=== PATIENT | male | born 1950 | race Two or more races ===

== ENCOUNTER 2024-05-08 21:57 | Inpatient (IN) | payer BC ==
[~2024-05-08] VITALS: Ht 172.7 cm; Wt 115.2 kg
[2024-05-09] MEDS ORDERED: ACETAMINOPHEN 325 MG TABLET PO PRN
[2024-05-09] MEDS ORDERED: MAGNESIUM HYDROXIDE 30 ML UDC PO PRN
[2024-05-09] MEDS ORDERED: ONDANSETRON HCL/PF 4 MG/2 ML VIAL IVP PRN
[2024-05-09] MEDS ORDERED: Z GUARD REMEDY 4 OZ OINT TP PRN
[2024-05-09] MEDS: NITROGLYCERIN PACKET 1 GM PACKET TOP SCH (01:05)
[2024-05-09] MEDS ORDERED: CLOPIDOGREL BISULFATE 75 MG TABLET PO ONE (01:30)
[2024-05-09] MEDS: METOPROLOL TARTRATE 25 MG TABLET PO ONE (02:56)
[2024-05-09] MEDS: MORPHINE SULFATE INJ 4 MG/ML DISP.SYRIN IV PRN (02:57)
[2024-05-09] MEDS ORDERED: CILOSTAZOL 100 MG TABLET ONE (03:08)
[2024-05-09] MEDS ORDERED: CLOPIDOGREL BISULFATE 75 MG TABLET ONE (03:12)
[2024-05-09] MEDS: CLOPIDOGREL BISULFATE 300 MG TABLET PO ONE (03:13)
[2024-05-09 04:00] VITALS: BP 138/60; TEMP 99; O2SAT 95
[2024-05-09 08:00] VITALS: BP 123/76; TEMP 98.6; O2SAT 96
[2024-05-09] MEDS ORDERED: VALA100026 PO (08:10)
[2024-05-09] MEDS ORDERED: ROSU5TAB PO (08:10)
[2024-05-09] MEDS ORDERED: OLME1TAB88 PO (08:10)
[2024-05-09] MEDS ORDERED: CLOP75TA15 PO (08:10)
[2024-05-09] MEDS ORDERED: PRED5DRO16 RIGHTEYE (08:10)
[2024-05-09] MEDS ORDERED: ASPI-1169 PO (08:10)
[2024-05-09] MEDS: PANTOPRAZOLE 40 MG TABLET.DR PO SCH (08:11)
[2024-05-09 08:19] LABS: CALCIUM, SERUM 9.3 mg/dL (8.5-10.1); CARBON DIOXIDE 30 mmol/L (21-32); CHLORIDE 103 mmol/L (98-107); CREATININE 1.1 mg/dL (0.6-1.3); GLUCOSE 109 mg/dL (74-106); MAGNESIUM 2.2 mg/dL (1.8-2.4); POTASSIUM 4.4 mmol/L (3.5-5.1); SODIUM SERUM 138 mmol/L (136-145); UREA NITROGEN, BLOOD 18 mg/dL (7-18)
[2024-05-09 08:24] LABS: BASOPHILS % (AUTO) 0.2 % (0.0-2.0); EOSINOPHILS # (AUTO) 0.1 K/uL (0.0-0.7); EOSINOPHILS % (AUTO) 0.9 % (0.0-6.0); HEMATOCRIT 37 % (39-51); HEMOGLOBIN 12.6 g/dL (13.5-17.5); LYMPHOCYTES # (AUTO) 0.7 K/uL (0.8-4.8); LYMPHOCYTES % (AUTO) 7.1 % (20.0-44.0); MEAN CORPUSCULAR HEMOGLOBIN 31 PG (26.0-33.0); MEAN CORPUSCULAR HGB CONC 34 g/dl (31.0-36.0); MEAN CORPUSCULAR VOLUME 89 fL (80-96); MONOCYTES # (AUTO) 0.6 K/uL (0.1-1.30); MONOCYTES % (AUTO) 5.8 % (2.0-12.0); NEUTROPHILS # (AUTO) 8.4 K/uL (1.8-8.9); PLATELET COUNT (AUTO) 219 K/uL (150-450); RED BLOOD CELL COUNT(AUTO) 4.12 MIL/uL (4.5-6.0); RED CELL DISTRIBUTION WIDTH 14.1 % (11.5-15.0); WHITE BLOOD COUNT (AUTO) 9.8 K/uL (4.3-11.0)
[2024-05-09 08:34] LABS: CHOLESTEROL 159 mg/dL (<200); HDL CHOLESTEROL 41 mg/dL (40-60); LDL 80 mg/dL (0-99); TRIGLYCERIDES 302 mg/dL (30-150)
[2024-05-09] MEDS: ASPIRIN 325 MG TABLET PO SCH (08:34)
[2024-05-09] MEDS: METOPROLOL TARTRATE 50 MG TABLET PO SCH (08:34)
[2024-05-09] MEDS ORDERED: CLOPIDOGREL BISULFATE 75 MG TABLET PO SCH (09:00)
[2024-05-09] MEDS: ENOXAPARIN SODIUM 120 MG/0.8 ML DISP.SYRIN SQ SCH (09:57)
[2024-05-09 12:00] VITALS: BP 125/68; TEMP 98.2; O2SAT 96
[2024-05-09 16:00] VITALS: BP 139/77; TEMP 98.4; O2SAT 97
[2024-05-09 20:00] VITALS: BP 128/66; TEMP 98; O2SAT 100
[2024-05-09] MEDS: ATORVASTATIN 40 MG TABLET PO SCH (22:02)
[2024-05-10] VITALS: BP 111/92; TEMP 98.9; O2SAT 100
[2024-05-10 04:00] VITALS: BP 125/90; TEMP 98.9; O2SAT 100
[2024-05-10 06:46] LABS: OCCULT BLOOD STOOL NEGATIVE (NEGATIVE)
[2024-05-10 06:57] LABS: APPEARANCE,URINE CLEAR (CLEAR); BILIRUBIN,URINE NEGATIVE (NEGATIVE); BLOOD, URINE TRACE-INTA Ery/uL (NEGATIVE); COLOR,URINE YELLOW (YELLOW); KETONES,URINE NEGATIVE (NEGATIVE); LEUKOCYTE ESTERASE ,URINE NEGATIVE (NEGATIVE); NITRITE, URINE NEGATIVE (NEGATIVE); PROTEIN,URINE NEGATIVE (NEGATIVE); UGLUCOSE NEGATIVE (NEGATIVE); UROBILINOGEN,URINE 0.2 EU/dL (0.2)
[2024-05-10 06:58] LABS: ADD URINE CULTURE NO; BACTERIA,URINE Rare /HPF (None Seen); SQUAMOUS EPITHELIAL CELL,UR Few /HPF (None Seen); WBC,URINE 0-2 /HPF (0-3)
[2024-05-10 07:44] LABS: BASOPHILS % (AUTO) 0.4 % (0.0-2.0); EOSINOPHILS # (AUTO) 0.2 K/uL (0.0-0.7); EOSINOPHILS % (AUTO) 2.8 % (0.0-6.0); HEMATOCRIT 35 % (39-51); HEMOGLOBIN 12.5 g/dL (13.5-17.5); LYMPHOCYTES # (AUTO) 0.9 K/uL (0.8-4.8); LYMPHOCYTES % (AUTO) 10.7 % (20.0-44.0); MEAN CORPUSCULAR HEMOGLOBIN 32 PG (26.0-33.0); MEAN CORPUSCULAR HGB CONC 35 g/dl (31.0-36.0); MEAN CORPUSCULAR VOLUME 91 fL (80-96); MONOCYTES # (AUTO) 0.7 K/uL (0.1-1.30); MONOCYTES % (AUTO) 8.6 % (2.0-12.0); NEUTROPHILS # (AUTO) 6.2 K/uL (1.8-8.9); NEUTROPHILS % (AUTO) 77.5 % (43.0-81.0); PLATELET COUNT (AUTO) 201 K/uL (150-450); RED CELL DISTRIBUTION WIDTH 14.3 % (11.5-15.0); WHITE BLOOD COUNT (AUTO) 8.1 K/uL (4.3-11.0)
[2024-05-10 07:58] LABS: ALBUMIN 3.6 g/dL (3.4-5.0); BILIRUBIN,TOTAL 0.6 mg/dL (0.2-1.0); CALCIUM, SERUM 8.9 mg/dL (8.5-10.1); CREATININE 1.1 mg/dL (0.6-1.3); PHOSPHORUS 3.4 mg/dL (2.5-4.9); POTASSIUM 4.3 mmol/L (3.5-5.1); TOTAL PROTEIN, SERUM 7.2 g/dL (6.4-8.2)
[2024-05-10 08:00] VITALS: BP 151/75; TEMP 99; O2SAT 96
[2024-05-10 08:09] LABS: INR 0.99 (0.91-1.10); PARTIAL THROMBOPLASTIN TIME 26.9 SEC (24.3-34.3); PROTHROMBIN TIME 10.5 SECS (9.2-11.1)
[2024-05-10] MEDS: CLOPIDOGREL BISULFATE 75 MG TABLET PO SCH (08:26)
[2024-05-10] MEDS ORDERED: IV SET PRIMARY PUMP SET 1 EA INFUS.SET MC ONE (10:13)
[2024-05-10] MEDS ORDERED: IV NS 0.9% 1,000 ML ONE (10:13)
[2024-05-10] MEDS ORDERED: IODIXANOL 150 ML IV ONE (10:21)
[2024-05-10] MEDS ORDERED: LIDOCAINE HCL/MPF 1% 30 ML VIAL IJ ONE (10:21)
[2024-05-10] MEDS ORDERED: NITROGLYCERIN IN 5 % DEXTROSE 250 ML IV ONE (10:21)
[2024-05-10] MEDS ORDERED: FENTANYL PF 100MCG/2ML AMPUL ONE (11:21)
[2024-05-10] MEDS ORDERED: MIDAZOLAM HCL 2 MG/2ML VIAL ONE (11:21)
[2024-05-10] MEDS ORDERED: HEPARIN SODIUM, PORCINE 5000 UNITS/1 ML VIAL ONE (12:10)
[2024-05-10] MEDS ORDERED: IODIXANOL 320MG/ML 50 ML IV ONE ×2 (12:11→12:32)
[2024-05-10] MEDS ORDERED: HEPARIN SODIUM, PORCINE 1,000 UNIT/ML VIAL ONE ×2 (12:11→13:09)
[2024-05-10] MEDS ORDERED: IODIXANOL 320MG/ML 100 ML IV ONE ×2 (12:23→12:53)
[2024-05-10] MEDS ORDERED: NITR0.4T48 SL (12:54)
[2024-05-10] MEDS ORDERED: CLOPIDOGREL BISULFATE 300 MG TABLET ONE (12:54)
[2024-05-10 16:00] VITALS: BP 142/64; TEMP 98.2; O2SAT 96
[2024-05-10 20:00] VITALS: BP 159/87; TEMP 98.2; O2SAT 97
[2024-05-11] VITALS: BP 139/74; TEMP 98.4; O2SAT 98
[2024-05-11 04:00] VITALS: BP 124/73; TEMP 98.5; O2SAT 96
[2024-05-11] MEDS: ASPIRIN 81 MG TAB.CHEW PO SCH (08:59)
[2024-05-11 09:00] VITALS: BP 143/79; TEMP 97.4; O2SAT 99
[2024-05-11 12:00] VITALS: BP 143/79; TEMP 97.4; O2SAT 99
== END 2024-05-11 13:10 | disposition home or self-care (01) | DRG 321 ==
LOC: EDSEX 23:52 → TELE1 23:52 → MEDSG1 05-09 03:33 → TELE-TD 05-09 06:52 → ICU 05-10 13:07 → TELE-TD 05-10 18:20 → TELE1 05-11 10:11
PROVIDERS: ADMIT Nurse Practitioner Family
PROC: 4A0335C Measurement of Arterial Flow, Coronary, Percutaneous Approach (ICD-10-PCS; principal; 2024-05-10)
PROC: 027034Z Dilation of Coronary Artery, One Artery with Drug-eluting Intraluminal Device, Percutaneous Approach (ICD-10-PCS; 2024-05-10)
PROC: B34HZZZ Ultrasonography of Right Upper Extremity Arteries (ICD-10-PCS; 2024-05-10)
PROC: 4A023N7 Measurement of Cardiac Sampling and Pressure, Left Heart, Percutaneous Approach (ICD-10-PCS; 2024-05-10)
PROC: B211YZZ Fluoroscopy of Multiple Coronary Arteries using Other Contrast (ICD-10-PCS; 2024-05-10)
DX: I97.89 Other postprocedural complications and disorders of the circulatory system, not elsewhere classified (principal); I21.A1 Myocardial infarction type 2; I25.10 Atherosclerotic heart disease of native coronary artery without angina pectoris; M19.90 Unspecified osteoarthritis, unspecified site; I10 Essential (primary) hypertension; E87.6 Hypokalemia; D72.829 Elevated white blood cell count, unspecified; Y83.8 Other surgical procedures as the cause of abnormal reaction of the patient, or of later complication, without mention of misadventure at the time of the procedure; Y92.530 Ambulatory surgery center as the place of occurrence of the external cause; G56.02 Carpal tunnel syndrome, left upper limb; E78.5 Hyperlipidemia, unspecified; I25.2 Old myocardial infarction; Z85.72 Personal history of non-Hodgkin lymphomas; Z95.5 Presence of coronary angioplasty implant and graft; Z90.49 Acquired absence of other specified parts of digestive tract; Z98.890 Other specified postprocedural states; F43.9 Reaction to severe stress, unspecified
CPT/HCPCS: 36415; 80048-TC; 80053-TC; 80061-TC; 81001; 82272-TC; 83735-TC; 84100-TC; 84443-TC; 84484-TC; 85025-TC; 85347; 85610-TC; 85730-TC; 93307-TC; 97112-TC; 97116-TC; 97530-TC; A4223; A6403; G0378; J1644; J1650; J2250; J2270; J3010; J3490; J7030; Q9967